=== PATIENT | female | born 1960 | race Hispanic/Latino ===

== ENCOUNTER 2018-04-26 14:30 | Emergency (ER) | payer OTHER ==
[2018-04-26 14:34] VITALS: BP 118/76; PULSE 57; RESP 18; TEMP 97.8; O2SAT 97
--- NOTE | 2018-04-26 14:50 | ED PDOC ---
Lower Extremity Pain/Injury Time Seen by Provider: 04/26/18 14:35 Chief Complaint (Nursing): Lower Extremity Problem/Injury Chief Complaint (Provider): Right Foot Injury History Per: Patient History/Exam Limitations: no limitations Onset/Duration Of Symptoms: Days (x1 week), Worse Since (yesterday) Current Symptoms Are (Timing): Still Present Additional Complaint(s): 58 year old female presents to the ED for evaluation of right foot pain s/p hitting her foot one week ago against a table. She notes the pain is worst to the right pinky toe with increasing pain, worsening yesterday with walking on it associated with bruising and swelling to the area. For pain, she reports taking 800mg Ibuprofen, lost dosage this morning around 0800. PMD: none provided Past Medical History Reviewed: Historical Data, Nursing Documentation, Vital Signs Vital Signs: Last Vital Signs Temp 97.8 F 04/26/18 14:33 Pulse 57 L 04/26/18 14:33 Resp 18 04/26/18 14:33 BP 118/76 04/26/18 14:33 Pulse Ox 97 04/26/18 14:33 - Medical History PMH: Fractures (stress fx to left LE) Other PMH: hernia - Surgical History Surgical History: Hernia Repair - Family History Family History: States: Unknown Family Hx - Home Medications Home Medications: Ambulatory Orders Medication Instructions Recorded Ibuprofen [Motrin] 600 mg PO Q8 PRN #21 tab 04/26/18 - Allergies Allergies/Adverse Reactions: Allergies Allergy/AdvReac Type Severity Reaction Status Date / Time Sulfa (Sulfonamide Allergy RASH Verified 04/26/18 14:32 Antibiotics) Review of Systems ROS Statement: Except As Marked, All Systems Reviewed And Found Negative Musculoskeletal: Positive for: Foot Pain (right, greatest pain in pinky toe with swelling and bruising) Physical Exam - Reviewed Nursing Documentation Reviewed: Yes Vital Signs Reviewed: Yes - Physical Exam Appears: Positive for: No Acute Distress Extremity: Positive for: Normal ROM (of right ankle and all digits), Tenderness (mostly to right 5th digit mostly, but also to webspace between 4th and 5th digit; right ankle nontender), Other (ecchymosis to dorsum of right foot) Neurologic/Psych: Negative for: Motor/Sensory Deficits - ECG O2 Sat by Pulse Oximetry: 97 (RA) Pulse Ox Interpretation: Normal - Progress ED Course And Treament: XRY OF FOOT READ NEG BY RADIOLOGY BUT PATIENT HAS MODERATE PAIN IN REGION OF TOE, TOE BUDDYTAPED AND ADVISED DECREASED WALKING DUE TO POSSIBLE TOE FX. GIVEN PODIATRY CLINIC REFERRAL FOR FURTHER EVALUATION. Medical Decision Making Medical Decision Making: Time: 1440 Initial Impression: right pinky toe pain Initial Plan: --Right foot XR Scribe Attestation: Documented by Coretta Whitley, acting as a scribe for Nadir Benito PA-C. Provider Scribe Attestation: All medical record entries made by the Scribe were at my direction and personally dictated by me. I have reviewed the chart and agree that the record accurately reflects my personal performance of the history, physical exam, medical decision making, and the department course for this patient. I have also personally directed, reviewed, and agree with the discharge instructions and disposition. Disposition - Clinical Impression Clinical Impression: Toe fracture, right - Patient ED Disposition Is Patient to be Admitted: No - Disposition Referrals: Podiatry Clinic [Outside] Jaron Piña DPM [Staff Provider] - Disposition: Routine/Home Disposition Time: 15:23 Condition: FAIR Prescriptions: Ibuprofen [Motrin] 600 mg PO Q8 PRN #21 tab PRN Reason: Pain, Moderate (4-7) Instructions: Toe Fracture (DC) Forms: [facility] ED School/Work Excuse
--- NOTE | 2018-04-26 15:38 | RAD ---
Date of service: 04/26/2018 PROCEDURE: Right Foot Radiographs. HISTORY: RIGHT TOE/FOOT INJURY COMPARISON: None. FINDINGS: BONES: No definite fracture. There is a small smooth sclerotic ovoid density just medial to the head of the 5th metatarsal, unlikely to represent an acute fracture. There is an additional smooth sclerotic density overlapping the medial border of the head of the 2nd metatarsal. Likely anatomic variant of ossifications centers. JOINTS: Normal. SOFT TISSUES: Normal. OTHER FINDINGS: None. IMPRESSION: No acute fracture
== END 2018-04-26 15:49 | disposition home or self-care (01) ==
LOC: H.ER 14:30
DX: S92.501A Displaced unspecified fracture of right lesser toe(s), initial encounter for closed fracture (principal); W22.03XA Walked into furniture, initial encounter